=== PATIENT | female | born 1970 | race Caucasian/White ===

== ENCOUNTER 2018-09-20 07:28 | Day surgery (SDC) | payer OTHER ==
[~2018-09-20] VITALS: Ht 160 cm; Wt 89.1 kg
[~2018-09-20 07:28] MED LIST: ATORVASTATIN; METFORMIN; METOPROLOL; [UNRECOGNIZED DRUG - REMARK]
[2018-09-20 08:25] VITALS: Ht 160 cm; Wt 89.1 kg
[2018-09-20 08:31] VITALS: BP 169/79; PULSE 60; RESP 15
--- NOTE | 2018-09-20 08:33 | PREAC ---
Date/Time of Note Date/Time of Note DATE: 09/20/18 TIME: 08:32 Anesthesia Eval and Record Evaluation Time Pre-Procedure Interview DATE: 09/20/18 TIME: 08:32 Age 48 Sex female NPO: 8 hrs Preoperative diagnosis reflux esophagitis, screening Planned procedure EGD, colonoscopy Past Medical History Past Medical History: Includes Cardio: HTN, Dyslipidemia Endo: Diabetes GI: Obesity Surgery & Anesthesia Issues No known issue Meds Anticoagulation: No Beta Andrea within 24 hr: Yes Reason Beta Andrea not given: Bradycarida, Hypotension Reported Medications [Atorvastatin] No Conflict Check 09/20/18 [Metoprolol] No Conflict Check 09/20/18 [Unk Reflux Med] No Conflict Check 09/20/18 [Metformin] No Conflict Check 09/20/18 Meds reviewed: Yes Allergies Allergies Reviewed: Yes Labs/Studies Labs Reviewed: Reviewed by anesthesiologist test: Negative Pre-procedure Exam Airway: Adequate mouth opening, Adequate thyromental dist Mallampati: Mallampati II Teeth: Normal Lung: Normal Heart: Normal ASA Physical Status ASA physical status: 2 Emergency: None Planned Anesthetic General/MAC: Mask Planned Pain Management Parenteral pain med Pre-operative Attestations Prior to commencing anesthesia and surgery, the patient was re-evaluated, there was verification of: *The patient's identity *The results of appropriate recent lab work and preoperative vital signs *The above evaluation not changing prior to induction *Anesthetic plan, risk benefits, alternative and complications discussed with patient/family; questions answered; patient/family understands, accepts and wishes to proceed. SHANTELL SCALES MD Sep 20, 2018 08:32
[2018-09-20] MEDS ORDERED: LIDOCAINE 2% (SDV) 5 ML INJ ONE (08:36)
[2018-09-20] MEDS ORDERED: PROPOFOL 60 ML ONE (08:36)
[2018-09-20] MEDS ORDERED: ONDANSETRON 4 MG INJ IV PRN (09:00)
[2018-09-20 09:11] VITALS: BP 142/68; PULSE 77; RESP 22
--- NOTE | 2018-09-20 09:21 | PAC ---
Date/Time of Note Date/Time of Note DATE: 09/20/18 TIME: 09:20 Post-Anesthesia Notes Post-Anesthesia Note Last documented vital signs Vital Signs Date Temp Pulse Resp B/P (MAP) Pulse Ox O2 O2 Flow FiO2 Time Delivery Rate 09/20/18 97.5 60 15 169/79 99 Room Air 08:31 (109) Activity: WNL Respiratory function: WNL Cardiovascular function: WNL Mental status: Baseline Pain reasonably controlled: Yes Hydration appropriate: Yes Nausea/Vomiting absent: Yes Comments BP: 139/87 HR: 60 RR: 15 T: 98 SaO2: 100% SHANTELL SCALES MD Sep 20, 2018 09:21
[2018-09-20 09:44] VITALS: BP 155/76; PULSE 64; RESP 20
== END 2018-09-20 14:50 | disposition home or self-care (01) ==
LOC: GIL 07:28
PROVIDERS: ATTEND Internal Medicine Gastroenterology
DX: Z12.11 Encounter for screening for malignant neoplasm of colon (principal); K29.30 Chronic superficial gastritis without bleeding; K64.8 Other hemorrhoids; I10 Essential (primary) hypertension; E11.9 Type 2 diabetes mellitus without complications; Z79.84 Long term (current) use of oral hypoglycemic drugs
CPT/HCPCS: 43239; 45378; 82962; 84703; Z7610; 88305; 88312